=== PATIENT | male | born 1985 | race Caucasian/White ===

== ENCOUNTER 2018-05-05 22:33 | Emergency (ER) | payer SELFPAY ==
[2018-05-05 22:34] VITALS: BP 151/98; PULSE 112; RESP 18; TEMP 36.9; O2SAT 98; BMI 35.6
--- NOTE | 2018-05-05 23:04 | CT_ITS ---
STUDY: CT BRAIN WITHOUT CONTRAST REASON FOR EXAM: Male, 32 years old. Head injury. RADIATION DOSAGE (If Supplied By Facility): CTDIvol = ( 44.99 ) mGy, DLP = ( 779.24 ) mGycm TECHNIQUE: Transaxial CT imaging of the brain was performed without administration of intravenous contrast material. Individualized dose optimization techniques were used for this CT. COMPARISON: None. FINDINGS: Normal soft tissue structures. Normal calvarium. 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 Normal size ventricles and extra-axial spaces for the patient's age. Normal white matter tracts of the cerebral hemispheres. Normal basal ganglia and thalami. Normal brainstem. Normal cerebellum. There is no intracranial hemorrhage. There are no findings of an acute ischemic infarction. There are polyps or retention cyst the maxillary sinuses and there is mucoperiosteal thickening in bilateral ethmoid and sphenoid sinuses, consistent with chronic sinusitis. There is no evidence for acute sinusitis. CT/Brain/Head without Contrast IMPRESSION: Normal unenhanced CT scan of the brain. Electronically Signed: Brayan Valera MD at 0:23 EDT , Service support ,
--- NOTE | 2018-05-05 23:04 | CT_ITS ---
STUDY: CT CERVICAL SPINE WITHOUT CONTRAST REASON FOR EXAM: Male, 32 years old. Head injury. RADIATION DOSAGE (If Supplied By Facility): CTDIvol = ( 26.65 ) mGy, DLP = ( 624.06 ) mGycm TECHNIQUE: High resolution transaxial imaging was performed without contrast material. Sagittal and coronal images were reconstructed. Individualized dose optimization techniques were used for this CT. COMPARISON: None FINDINGS: Normal craniovertebral junction. Normal anterior atlantoaxial articulation. Normal odontoid process. There is straightening of the normal lordotic curve, a nonspecific finding, which may be due to positioning or which might be due to muscle spasm. 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 Otherwise normal vertebral bodies and posterior osseous elements. C2-3: Normal endplates. Normal disc height and morphology. Normal central canal and intervertebral neuroforamina. C3-4: Normal endplates. Normal disc height and morphology. Normal central canal and intervertebral neuroforamina. C4-5: Normal endplates. Small central posterior disc protrusion. Mild spinal stenosis with central canal AP diameter of 9.5 mm.. Normal intervertebral neuroforamina. C5-6: Normal endplates. Small broad posterior disc protrusion. Mild spinal stenosis with central canal AP diameter of 9.5 mm.. Normal intervertebral neuroforamina. C6-7: Normal endplates. Normal disc height and morphology. Normal central canal and intervertebral neuroforamina. C7-T1: Normal endplates. Mild relative disc space narrowing.. Normal central canal and intervertebral neuroforamina. There is enlargement of palatine tonsils. There is a large soft tissue structure in the visualized upper mediastinum, posterior to the trachea and esophagus which appears to compress the esophagus and displaces it anteriorly. This structure is only partially visualized in this exam name uncertain as to whether it represents a mass, lymphadenopathy, or vascular anomaly. CT/Spine Cervical without Contras IMPRESSION: Multilevel degenerative changes, as described above. No demonstrated fracture or subluxation. Incidental finding of a large structure in the visualized upper mediastinum, located posterior to the trachea and esophagus, and compressing the esophagus. Finding may represent a mass lesion, lymphadenopathy, or vascular anomaly. Would consider CT scan of the chest for further evaluation. Mildly enlarged palatine tonsils. Electronically Signed: Brayan Valera MD at 0:32 EDT , Service support ,
[2018-05-05 23:25] LABS: Absolute Lymphocyte Count 2.21 X10^3/ul (0.83-4.51); Basophil# 0.02 X10^3/uL; Basophil% 0.2 % (0-1); Eosinophil# 0.29 X10^3/uL; Eosinophils% 3.1 % (0-5); Hematocrit 42.6 % (40-54); Lymphocyte # 2.21 X10^3/ul (4.0); Lymphocyte % 23.5 % (19-41); Mean Corp Hgb Conc 35.2 g/gl (32-36); Mean Corpuscular Volume 85.2 fL (80-94); Mean Platelet Vol. 9.7 fl (6.2-12.0); Monocyte# 0.86 X10^3/uL; Monocyte% 9.1 % (0-10); Neutrophil # 6.01 X10^3/uL (2.7-7.7); Neutrophil % 63.8 % (47-70); POSITIVE COUNT NO; POSITIVE DIFFERENTIAL NO; POSITIVE MORPHOLOGY NO; Platelet Count 232 K/mm3 (150-450); White Blood Count 9.4 K/mm3 (4.4-11.0)
[2018-05-05 23:32] LABS: Anion Gap 3 (5-15); BUN 10 mg/dL (7-18); BUN/Creat Ratio 10.2 RATIO (10-20); Calcium,Total 8.5 mg/dL (8.5-10.1); Chloride 110 mmol/L (98-107); Creatinine, Serum 0.98 mg/dL (0.70-1.30); EST Glomerular Filtration Rate 93 mL/min (>60); Est Glom Filt Rate - Afr Amer 113 mL/min (>60); Estimated Creatinine Clearance 93.26 ml/min; Glucose 107 mg/dL (74-106); Potassium 3.8 mmol/L (3.5-5.1); Sodium Level 140 mmol/L (136-145)
[2018-05-05 23:35] LABS: Prothrombin Time (Protime)PT. 12.7 SECONDS (11.7-14.9)
[2018-05-05 23:44] LABS: Alcohol, Blood (Medical)-Serum < 3.0 mg/dL
--- NOTE | 2018-05-06 00:38 | CT_ITS ---
STUDY: CT CHEST WITH CONTRAST REASON FOR EXAM: Male, 32 years old. Mediastinal mass. RADIATION DOSAGE (If Supplied By Facility): CTDIvol = ( 18.03 ) mGy, DLP = ( 525.25 ) mGycm TECHNIQUE: Transaxial imaging was performed following intravenous administration of Isovue 370 100 IV. Individualized dose optimization techniques were used for this CT. COMPARISON: CT cervical spine May 05, 2018. FINDINGS: The lungs are normal. There is no demonstrated pleural abnormality. Normal heart and pericardium. Normal mediastinum. Normal hilar regions. Normal enhanced pulmonary arteries. 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 The proximal left subclavian artery is dilated, measuring 3.5 x 3.3 cm AP and transverse respectively, and passes posterior to the esophagus. Lateral to the mediastinum the left subclavian artery has a normal caliber and courses towards towards the left axilla. Normal osseous structures. There is no demonstrated abnormality of the visualized upper abdomen. CT/Chest WITH Contrast IMPRESSION: No acute findings in the chest. Right-sided aortic arch with aberrant left subclavian artery which accounts for the mediastinal mass identified on the CT cervical spine. Electronically Signed: Fabio Wang MD at 2:34 EDT , Service support ,
[2018-05-06 02:28] VITALS: BP 139/90; PULSE 88; O2SAT 98
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
--- NOTE | 2018-05-06 02:46 | ED.DEP ---
ED Disposition - Plan for ED Patient: Instructions: ED Concussion Referrals: Care Physician,No Primary [Primary Care Provider] -
[2018-05-06 02:48] VITALS: BP 139/90; PULSE 88; RESP 18; O2SAT 98
== END 2018-05-06 02:51 | disposition home or self-care (01) ==
PROVIDERS: Emergency Provider Emergency Medicine
DX: S06.0X0A Concussion without loss of consciousness, initial encounter (principal); V86.55XA Driver of 3- or 4- wheeled all-terrain vehicle (ATV) injured in nontraffic accident, initial encounter; Y93.I9 Activity, other involving external motion; Y92.9 Unspecified place or not applicable; F17.200 Nicotine dependence, unspecified, uncomplicated
CPT/HCPCS: 36415; 70450; 71260; 72125; 80048; 80320; 82375; 85025; 85610; 99285; Q9967; A4216; G0480

== ENCOUNTER 2021-07-06 09:36 | Day surgery (SDC) | payer SELFPAY ==
[2021-07-06] VITALS (7 sets, daily range): BP systolic 128–154; BP diastolic 61–100; PULSE 74–90; RESP 15–18; TEMP 36.1–36.6; O2SAT 95–99; BMI 33.3
--- NOTE | 2021-07-06 10:01 | EKG12_ITS ---
Test Reason : PRE-OP Blood Pressure : / mmHG Vent. Rate : 087 BPM Atrial Rate : 087 BPM P-R Int : 158 ms QRS Dur : 096 ms QT Int : 368 ms P-R-T Axes : 036 043 043 degrees QTc Int : 442 ms Normal sinus rhythm with sinus arrhythmia Normal ECG When compared with ECG of 07-MAY-2011 14:19, No significant change was found Confirmed by MERVIN FORDE, DAVID ([id number]), supervising editor news reel GENEVA RENEE ([id number]) on 07/12/2021 12:21:02 PM Referred By: REGI Confirmed By:DAVID JEFFRIES MD
[2021-07-06] MEDS: Lactated Ringers 1,000 ML 15 ML IV (10:34)
[2021-07-06 10:37] LABS: Hematocrit 45.2 % (40-54); Hemoglobin 15.6 g/dL (13.0-16.5); Mean Corp Hgb Conc 34.5 g/dL (32-36); Mean Corpuscular Hgb 29.7 pg (27.0-32.0); Mean Corpuscular Volume 86.1 fL (80-94); Mean Platelet Vol. 9.6 fl (6.2-12.0); Platelet Count 304 K/mm3 (150-450); RBC Distribution Width CV 12.1 % (11.6-14.6); Red Blood Count 5.25 M/mm3 (4.6-6.2); White Blood Count 7.9 K/mm3 (4.4-11.0)
[2021-07-06] MEDS: Cefazolin 2 GM in 0.9% Normal Saline 100 ML IV (12:15)
--- NOTE | 2021-07-06 12:35 | RAD_ITS ---
STUDY: INTRAOPERATIVE FLUOROSCOPY TECHNIQUE: The examination was performed with referring physician in attendance. Under fluoroscopic observation, fluoroscopic images were obtained. Radiologist was not present for the study. Radiologist did not perform the procedure. This dictation is for documentation of the radiation dosage only. There is no interpretation of the images. TOTAL NUMBER OF IMAGES: 1 COMPARISON: None RADIATION DOSE: 2.9 mGy FLUOROSCOPY TIME: 103.8 seconds REASON FOR EXAM: ORIF, DISTAL RADIUS Male, 35 years old. FINDINGS: There is a metal sideplate transfixing the distal radial fracture. There are cortical screws holding the plate in place. RAD/Wrist 2 Views IMPRESSION: Fluoroscopic assistance images were obtained. Dictation for documentation purposes only. Electronically Signed: Roland Can MD at 14:05 EDT ,
--- NOTE | 2021-07-06 14:01 | PCM.DC ---
Discharge Instructions Follow Up Care Test Results: Test results from this visit will be discussed in further detail at your follow-up appointment, if applicable. Discharge Plan Admission Primary Reason for Your Visit: Right wrist fixation Attending Provider: Tal Blue Primary Care Provider: Care Physician,No Primary Instructions Additional Instructions / Restrictions: Follow preprinted instructions from your surgeons office. Discharge Orders/Prescriptions Prescriptions: New hydrocodone-acetaminophen 5-325 mg tablet 2 tab PO Q6H PRN (Reason: pain) 7 Days Qty: 56 RF: 0 Discontinued hydrocodone-acetaminophen 5-325 mg tablet 1 tab PO PRN PRN (Reason: pain) RF: 0 Referrals / Follow Up: Tal Blue DO [STAFF PHYSICIAN] - Within 2 Weeks Care Physician,No Primary [Primary Care Provider] - Disposition Disposition (needs filled in before D/C Order can be placed): Home, Self Care
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
[2021-07-06] MEDS: Bupivacaine Mpf 0.5% 30 ML VIAL (14:05)
[2021-07-06] MEDS: HYDROcodone Bitartrate/Apap 5/325 Tablet PO (15:30)
== END 2021-07-06 16:12 | disposition home or self-care (01) ==
LOC: SDC 09:40 → AC 09:41
PROVIDERS: Anesthesiology; Visit Provider Student in an Organized Health Care Education/Training Program
PROC: (CPT 25609; principal; 2021-07-06 11:20)
DX: S52.571A Other intraarticular fracture of lower end of right radius, initial encounter for closed fracture (principal); V18.9XXA Unspecified pedal cyclist injured in noncollision transport accident in traffic accident, initial encounter; Y93.55 Activity, bike riding; Y99.8 Other external cause status; R03.0 Elevated blood-pressure reading, without diagnosis of hypertension; E66.8 Other obesity; Z71.3 Dietary counseling and surveillance; Z68.34 Body mass index [BMI] 34.0-34.9, adult; F17.210 Nicotine dependence, cigarettes, uncomplicated
CPT/HCPCS: 25609; 01830; 73100; 76000; 85027; 93005; C1713; J7120; J2405

== ENCOUNTER → 2022-12-21 | Outpatient (CLI) | payer MEDICAID, SELFPAY ==
[2022-12-21 12:42] LABS: Absolute Lymphocyte Count 2.27 X10^3/uL (0.83-4.51); Absolute Neutrophil Count 4.7 X10^3/uL (2.0-7.7); Basophil# 0.04 X10^3/uL; Basophil% 0.5 % (0-1); Eosinophil# 0.31 X10^3/uL; Eosinophils% 3.8 % (0-5); Hemoglobin 15.1 g/dL (13.0-16.5); Lymphocyte # 2.27 X10^3/ul (0.83-4.51); Lymphocyte % 28.1 % (19-41); Mean Corp Hgb Conc 33.6 g/dL (32-36); Mean Corpuscular Hgb 30.2 pg (27.0-32.0); Mean Platelet Vol. 10.1 fl (6.2-12.0); Monocyte# 0.74 X10^3/uL; Monocyte% 9.1 % (0-10); NRBC Flagged by Analyzer 0 % (0-5); Neutrophil # 4.69 X10^3/uL (2.7-7.7); Platelet Count 264 K/mm3 (150-450); RBC Distribution Width CV 12.8 % (11.6-14.6); RBC Distribution Width SD 41.3 fl (35.1-43.9); White Blood Count 8.1 K/mm3 (4.4-11.0)
[2022-12-21 12:58] LABS: Vitamin D,25 Hydroxy 43.9 ng/mL
[2022-12-21 13:28] LABS: ALB/GLOB Ratio 0.9 RATIO (0.9-2.4); AST(SGOT) 67 U/L (15-37); Alanine Aminotransfer ALT/SGPT 132 U/L (16-61); Albumin, Serum 3.7 g/dL (3.2-5.0); Alkaline Phosphatase 95 U/L (45-117); Anion Gap 3 (5-15); BUN 14 mg/dL (7-18); BUN/Creat Ratio 14.1 RATIO (10-20); Calcium,Total 9.1 mg/dL (8.5-10.1); Chloride 107 mmol/L (98-107); Cholesterol 188 mg/dL (200); EST Glomerular Filtration Rate 89 mL/min (>60); Est Glom Filt Rate - Afr Amer 108 mL/min (>60); Glucose 109 mg/dL (74-106); High Density Lipoprotein 26 mg/dL; Protein, Total 7.7 g/dL (6.4-8.2); Sodium Level 137 mmol/L (136-145); Thyroid Stim Hormone (TSH) 2.31 uIU/mL (0.358-3.74); Triglycerides 397 mg/dL; Very Low Density Lipoprotein 79 mg/dL (5-40)
[2022-12-21 13:53] LABS: Hemoglobin A1c 5.6 % (3.8-5.6)
== END | disposition home or self-care (01) ==
LOC: MFPLAB 10:48
PROVIDERS: PCP Family Medicine; Visit Provider Family Medicine
DX: R03.0 Elevated blood-pressure reading, without diagnosis of hypertension (principal); Z13.1 Encounter for screening for diabetes mellitus; Z13.220 Encounter for screening for lipoid disorders
CPT/HCPCS: 36415; 80053; 80061; 82306; 83036; 84443; 85025

== ENCOUNTER → 2024-06-30 | Outpatient (CLI) | payer SELFPAY ==
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
== END | disposition home or self-care (01) ==
LOC: MTRAD 08:32
PROVIDERS: PCP Family Medicine
DX: R07.81 Pleurodynia (principal)
CPT/HCPCS: 71101